=== PATIENT | male | born 1960 | race Caucasian/White ===

== ENCOUNTER 2021-08-06 17:14 | Emergency (ER) | payer OTHER ==
[~2021-08-06] VITALS: Ht 170.2 cm; Wt 70.8 kg
[2021-08-06 17:53] VITALS: BP 174/99
== END 2021-08-06 18:30 | disposition home or self-care (01) ==
LOC: ER 17:14
DX: R51.9 Headache, unspecified (principal); Z20.822 Contact with and (suspected) exposure to COVID-19; M79.10 Myalgia, unspecified site; I10 Essential (primary) hypertension